=== PATIENT | female | born 1950 | race Caucasian/White ===

== ENCOUNTER 2020-07-07 05:27 | Day surgery (SDC) | payer MEDICARE, OTHER, MEDICAID ==
[2020-06-30 12:21] LABS: CLARITY,URINE SLIGHTLY CLOUDY (Clear); COLOR,URINE YELLOW (Yellow); GLUCOSE, URINE NEGATIVE (Neg); KETONES,URINE NEGATIVE (Neg); LEUKOCYTE ESTERASE ,URINE SMALL (Neg); NITRITES, URINE NEGATIVE (Neg); OCCULT BLOOD,URINE LARGE (Neg); PROTEIN,URINE NEGATIVE (Neg); UROBILINOGEN,URINE 0.2 E.U/dL (0.2-1.0)
[2020-06-30 12:22] LABS: UA COLLECTION TYPE NON-SPECIFIED
[2020-06-30 12:22] LABS: BASOPHILS # (AUTO) 0.1 X10'3 (0-0.2); BASOPHILS % (AUTO) 1.1 % (0-1); EOSINOPHILS % (AUTO) 0.5 % (0-6); LYMPHOCYTES # (AUTO) 1.7 X10'3 (1.1-4.8); LYMPHOCYTES % (AUTO) 19.5 % (21-51); MEAN CORPUSCULAR HEMOGLOBIN 32.4 PG (27.0-31.0); MEAN CORPUSCULAR HGB CONC 34.3 g/dL (33.0-36.5); MEAN CORPUSCULAR VOLUME 94.5 FL (78-98); MEAN PLATELET VOLUME 8.8 FL (7.4-10.4); MONOCYTES # (AUTO) 0.6 X10'3 (0-0.9); MONOCYTES % (AUTO) 6.9 % (2-12); NEUTROPHILS # (AUTO) 6.4 X10'3 (1.8-7.7); PRE OP HEMATOCRIT 44.6 % (35.0-45.0); PRE OP HEMOGLOBIN 15.3 g/dL (12.0-16.0); PRE OP PLATELET COUNT 182 X10'3 (140-440); RED BLOOD COUNT 4.72 X10'6 (4.20-5.60); RED CELL DISTRIBUTION WIDTH 14.2 % (11.5-14.5)
[2020-06-30 12:35] LABS: PRE OP PROTIME 10.5 SECONDS (9.0-12.0)
[2020-06-30 12:39] LABS: ALBUMIN 3.4 G/DL (3.4-5.0); ALBUMIN/GLOBULIN RATIO 0.8 (1.1-1.5); ALKALINE PHOSPHATASE 154 IU/L (46-116); BLOOD UREA NITROGEN 30 MG/DL (7-18); BUN/CREATININE RATIO 27.8 (6.6-38.0); CALCIUM 8.8 MG/DL (8.5-10.1); CHLORIDE 92 MMOL/L (99-107); CREATININE 1.08 MG/DL (0.40-0.90); PRE OP ALT 44 U/L (30-65); PRE OP ANION GAP 6 (8-16); PRE OP AST 40 U/L (10-37); PRE OP BILIRUB, TOTAL 0.3 MG/DL (0.0-1.0); PRE OP GLUCOSE 120 MG/DL (70-104); PRE OP SODIUM 133 MMOL/L (135-145); TOTAL PROTEIN 7.6 G/DL (6.4-8.2); eGFR 50 ML/MIN
[2020-06-30 12:44] LABS: HYALINE CASTS 0-3 /LPF (NEGATIVE); SQUAMOUS EPITHELIAL CELL,UR MANY /LPF (FEW)
[2020-06-30 12:45] LABS: BACTERIA,URINE 1+ /HPF (Neg); RBC,URINE 50-100 /HPF (0-2)
[2020-06-30 12:46] LABS: WBC,URINE 0-4 /HPF (0-4)
[2020-06-30 12:56] LABS: PRE OP POTASSIUM 2.7 MMOL/L (3.4-5.1)
[~2020-07-07] VITALS: Ht 177.8 cm; Wt 101.4 kg
[2020-07-07] VITALS (28 sets, daily range): BP systolic 95–125; BP diastolic 47–70
[~2020-07-07 05:27] MED LIST: ASPI-1264 PO; BUPR100T4 PO; CYAN50003 PO; CYCL-1 PO; DICL20GE TOP; DOCU-28 PO; DONE23TA7 PO; DOXY25TA58 PO; ERGO400C PO; FURO20TA4 PO; HYDR-4353 PO; METF-900 PO; MORP30CA16 PO; POTA10TA36 PO; PRAM2.252 PO; PREG150C PO; SERT100T PO; SPIR50TA5 PO; TIAG4TAB34 PO; TOPI25TA15 PO; TOPI50TA PO; [UNRECOGNIZED DRUG - OTHER] PO; ringers solution, lacted 1,000 ML IV SCH
[2020-07-07] MEDS ORDERED: famotidine 20mg tablet PO ONE (05:30)
[2020-07-07] MEDS ORDERED: vancomycin 1,500 MG in NS 300ml IV soln IV ONE (05:30)
[2020-07-07] MEDS ORDERED: MESSAGE TO NURSING IV ONE (05:30)
[2020-07-07] MEDS ORDERED: CLINDAMYCIN/D5W 900mg/50ml 50 ML IV ONE (06:10)
[2020-07-07 06:21] LABS: ISTAT CREATININE 0.9 mg/dL (0.6-1.1); ISTAT HGB 15.6 g/dl (12.0-16.0); ISTAT IONIZED CALCIUM 1.17 mmol/L (1.03-1.32); ISTAT K 3.1 mmol/L (3.5-5.1); POC BUN/CREATININE RATIO 27.8 (6.6-38.0)
[2020-07-07] MEDS ORDERED: BUPIVAcaine/PF 2.5 mg/ml (0.25%) 30ml vial ONE (06:41)
[2020-07-07] MEDS ORDERED: bacitracin 15gm ointment TP ONE (06:41)
[2020-07-07] MEDS ORDERED: MIDAZolam 1mg/ml 10ml vial ONE (06:59)
[2020-07-07] MEDS ORDERED: fentaNYL /PF 50mcg/ml 5ml ampule ONE (06:59)
[2020-07-07] MEDS ORDERED: ROPIVAcaine 0.5% (5mg/ml) 30ml vial ONE ×3 (07:00→07:01)
[2020-07-07] MEDS ORDERED: propofol inj 20 ML IV ONE (07:01)
[2020-07-07] MEDS ORDERED: LIDOcaine 2% (20mg/ml) 5ml vial ONE (07:01)
[2020-07-07] MEDS ORDERED: dexamethasone sod phosphate 4mg/ml inj. ONE (07:01)
[2020-07-07] MEDS ORDERED: ondansetron/PF 4mg/2ml inj ONE (07:01)
[2020-07-07] MEDS ORDERED: ePHEDrine 50MG/ML INJ. ONE (07:39)
[2020-07-07] MEDS ORDERED: rocuronium 10mg/ml inj IV ONE (08:14)
[2020-07-07] MEDS ORDERED: enalaprilat dihydrate 2.5mg/2ml vial IV PRN (08:25)
[2020-07-07] MEDS ORDERED: fentaNYL/PF 50MCG/1 ML 2ML syringe IV PRN ×2 (08:25)
[2020-07-07] MEDS ORDERED: morphine 2 MG/ML inj. syringe IV PRN (08:25)
[2020-07-07] MEDS ORDERED: ringers solution, lacted 1,000 ML IV SCH (08:25)
[2020-07-07] MEDS ORDERED: morphine 4 MG/ML inj SYRINge IV PRN (08:25)
[2020-07-07] MEDS ORDERED: hydrALAZINE 20mg/ml inj. IV PRN (08:25)
[2020-07-07] MEDS ORDERED: ondansetron/PF 4mg/2ml inj IV PRN (08:25)
[2020-07-07] MEDS ORDERED: fentaNYL/PF 50MCG/1 ML 2ML syringe ONE (10:03)
[2020-07-07] MEDS ORDERED: morphine 10mg/ml inj. ONE ×2 (11:25)
--- NOTE | 2020-07-07 12:10 | NUR ---
ADMITTED TO PACU FROM OR ACCOMPANIED BY ANESTHESIA. INTIAL PHYSICAL ASSESSMENT DONE AND RECORDED. REPORT RECEIVED FROM ANESTHESIA. COMPROMISED AIRWAY, JAW THRUSTS FOR AIRWAY, ECTCO SET UP ORDERED NARCAN GIVEN PER ORDERS.
[2020-07-07] MEDS ORDERED: naloxone 0.4 mg/ml inj ONE (12:12)
--- NOTE | 2020-07-07 12:30 | NUR ---
RESPONSIVE, ETCO2 35 ABLE TO LIFT HEAD AND FOLLOW SIMPLE COMMANDS, GRUNTING RESOLVED ABLE TO MAINTAIN OWN AIRWAY. WILL CONTINUE TO MONITOR ETCO2. DR. THOMAS AT BEDSIDE AND UPDATED CONDITION IMPROVES.
--- NOTE | 2020-07-07 13:00 | NUR ---
PT AWAKE AND RESPONSIVE DENIES PAIN, SOME OOZINIG NOTED FROM RIGHT FOOT SURGICAL AREA.
--- NOTE | 2020-07-07 14:00 | NUR ---
SURGICAL SITE ACTIVE BLEEDING, REINFORCED PER DR ROBERTS, UNABLE TO COME AND SEE PAT AT THIS TIME HE IS IN SURGICAL CASE. INSTRUCTED THAT HE WILL SEE AFTER SURGICAL PROCEDURE FINISHED.
--- NOTE | 2020-07-07 15:30 | NUR ---
DR. ROBERTS HERE, PT EVALUATED, NEW POSTERIOR SPLINT AND REINFORCEMENT TO BE DONE BY SAWMILLING OPERATOR. ASSISTED WITH APPLICATION OF NEW DRESSING AND POSTERIOR SPLINT.
--- NOTE | 2020-07-07 16:30 | NUR ---
PACU LENGTH OF STAY DUE TO BLEEDING AND INCONTINENCE. DISCHARGE CRITERIA MET, DISCHARGE INSTRUCTIONS GIVEN, DEMONSTRATES VERBAL UNDERSTANDING. DISCHARGED HOME IN GOOD CONDITION.
== END 2020-07-07 16:45 | disposition home or self-care (01) ==
LOC: PAS 05:27 → EDSTATUS 10:45 → PAS 16:45
PROVIDERS: ATTEND Podiatrist Foot & Ankle Surgery
DX: M21.6X1 Other acquired deformities of right foot (principal); M19.071 Primary osteoarthritis, right ankle and foot; M19.072 Primary osteoarthritis, left ankle and foot; G89.18 Other acute postprocedural pain; F41.9 Anxiety disorder, unspecified; F32.9 Major depressive disorder, single episode, unspecified; J44.9 Chronic obstructive pulmonary disease, unspecified; E66.9 Obesity, unspecified; Z68.32 Body mass index [BMI] 32.0-32.9, adult; F17.210 Nicotine dependence, cigarettes, uncomplicated; Z20.828 Contact with and (suspected) exposure to other viral communicable diseases; Z79.899 Other long term (current) drug therapy; Z79.01 Long term (current) use of anticoagulants; Z98.890 Other specified postprocedural states; Z90.49 Acquired absence of other specified parts of digestive tract; Z86.14 Personal history of Methicillin resistant Staphylococcus aureus infection; Z91.040 Latex allergy status; Z88.0 Allergy status to penicillin; Z91.09 Other allergy status, other than to drugs and biological substances
CPT/HCPCS: 20900; 28304; 28705; 36415; 64445; 64447; 71046; 73630; 76000; 76942; 80047; 80053; 81001; 85025; 85610; 85730; 87635; 93005; A6223; C1713; C9359; J1100; J2001; J2250; J2270; J2310; J2405; J2704; J3010; J3370; J3490; J7040; J7120; A4618; A6449; A7000; J2795